=== PATIENT | male | born 1975 | race American Indian/Alaskan Native ===

== ENCOUNTER 2018-04-10 22:02 | Emergency (ER) | payer OTHER ==
[2018-04-11] MEDS ORDERED: MOTRIN PO ONE (02:41)
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
[2018-04-11 05:47] VITALS: BP 114/72
== END 2018-04-11 03:08 | disposition home or self-care (01) ==
LOC: ED 22:02
DX: S13.4XXA Sprain of ligaments of cervical spine, initial encounter (principal); S39.012A Strain of muscle, fascia and tendon of lower back, initial encounter; V79.49XA Driver of bus injured in collision with other motor vehicles in traffic accident, initial encounter; Y93.89 Activity, other specified; Y99.8 Other external cause status; Y92.488 Other paved roadways as the place of occurrence of the external cause
CPT/HCPCS: 99282